=== PATIENT | female | born 1950 | race Caucasian/White ===

== ENCOUNTER 2022-12-29 13:53 | Emergency (ER) | payer MEDICARE, OTHER ==
[~2022-12-29] VITALS: Ht 180.3 cm; Wt 126.1 kg
[~2022-12-29 13:53] MED LIST: CHOL500045 PO; FLEC150T2 PO; LANS30TA10 PO; LEVO75TA10 PO; MULT-503 PO; SENN-178 PO; WARF-57 PO; WARF7.5T49 PO; [UNRECOGNIZED DRUG - CODE] PO
[2022-12-29] MEDS ORDERED: ADENOSINE 6MG VIAL IV ONE ×2 (14:30)
[2022-12-29 14:32] LABS: BASOPHILS % (AUTO) 0.3 % (0.0-5.0); EOSINOPHILS % (AUTO) 3.1 % (0.0-8.0); LYMPHOCYTES % (AUTO) 31.5 % (21.0-51.0); MEAN CORPUSCULAR HGB CONC 32.1 g/dL (32.0-36.0); MEAN CORPUSCULAR VOLUME 90.3 fL (79-99); NEUTROPHILS % (AUTO) 57.8 % (40.0-77.0); PLATELET COUNT (AUTO) 261 K/uL (130-400); RED BLOOD CELL COUNT(AUTO) 4.65 MIL/uL (4.00-5.50); RED CELL DISTRIBUTION WIDTH 13.7 % (11.0-15.5); WHITE BLOOD COUNT (AUTO) 11.7 K/uL (4.8-10.8)
[2022-12-29 14:44] LABS: CREATININE 0.9 mg/dL (0.5-1.5); POTASSIUM 4.7 mmol/L (3.5-5.1)
[2022-12-29 14:49] LABS: ALBUMIN 3.6 g/dL (3.5-5.0); TOTAL PROTEIN, SERUM 7.8 g/dL (6.0-8.3)
[2022-12-29 14:50] VITALS: BP 119/68
== END 2022-12-29 15:40 | disposition home or self-care (01) ==
LOC: EDH 13:53
DX: I47.1 Supraventricular tachycardia (principal); I48.91 Unspecified atrial fibrillation; Z88.5 Allergy status to narcotic agent; Z88.7 Allergy status to serum and vaccine; Z90.49 Acquired absence of other specified parts of digestive tract; Z98.890 Other specified postprocedural states
CPT/HCPCS: 36415; 71045; 80053; 84484; 85025; 93005

== ENCOUNTER 2023-09-16 13:26 | Emergency (ER) | payer MEDICARE ==
[~2023-09-16] VITALS: Ht 180.3 cm; Wt 129.3 kg
[2023-09-16] MEDS ORDERED: KETOROLAC 30MG VIAL (30MG/ML) IVP ONE (14:30)
[2023-09-16 15:24] LABS: BASOPHILS # (AUTO) 0.04 K/uL (0.00-0.20); BASOPHILS % (AUTO) 0.4 % (0.0-5.0); EOSINOPHILS # (AUTO) 0.22 K/uL (0.00-0.70); EOSINOPHILS % (AUTO) 2.3 % (0.0-8.0); HEMATOCRIT 33.6 % (36-48); IMMATURE GRANULOCYTE ABSOLUTE 0.05 K/uL (0-1); LYMPHOCYTES % (AUTO) 20.4 % (21.0-51.0); MEAN CORPUSCULAR HEMOGLOBIN 29.3 pg (27.0-33.0); MEAN CORPUSCULAR HGB CONC 32.7 g/dL (32.0-36.0); MEAN CORPUSCULAR VOLUME 89.4 fL (79-99); MONOCYTES # (AUTO) 0.8 K/uL (0.1-1.0); MONOCYTES % (AUTO) 8.4 % (3.0-13.0); NEUTROPHILS # (AUTO) 6.6 K/uL (1.8-7.7); PLATELET COUNT (AUTO) 235 K/uL (130-400); RED BLOOD CELL COUNT(AUTO) 3.76 MIL/uL (4.00-5.50); RED CELL DISTRIBUTION WIDTH 13.8 % (11.0-15.5); WHITE BLOOD COUNT (AUTO) 9.7 K/uL (4.8-10.8)
[2023-09-16 15:28] LABS: POTASSIUM 3.8 mmol/L (3.5-5.1)
[2023-09-16 15:33] LABS: ALBUMIN 3.1 g/dL (3.5-5.0); BILIRUBIN,TOTAL 0.4 mg/dL (0.2-1.0); TOTAL PROTEIN, SERUM 6.9 g/dL (6.0-8.3)
[2023-09-16 15:46] VITALS: BP 155/82; PULSE 78; RESP 18; O2SAT 98
[2023-09-16] MEDS ORDERED: KETO10TA2 PO (15:47)
== END 2023-09-16 16:02 | disposition home or self-care (01) ==
LOC: EDH 13:26
DX: S80.02XA Contusion of left knee, initial encounter (principal); S70.02XA Contusion of left hip, initial encounter; I48.91 Unspecified atrial fibrillation; Z79.890 Hormone replacement therapy; Z88.7 Allergy status to serum and vaccine; Z88.5 Allergy status to narcotic agent; Z90.49 Acquired absence of other specified parts of digestive tract; Z90.710 Acquired absence of both cervix and uterus; W01.0XXA Fall on same level from slipping, tripping and stumbling without subsequent striking against object, initial encounter; Y93.89 Activity, other specified; Y92.89 Other specified places as the place of occurrence of the external cause; Y99.8 Other external cause status
CPT/HCPCS: 99284; 96374; 80053; 85025; 87040 ×2; 83605; 36415; 73502; 73562; J1885

== ENCOUNTER → 2023-10-18 | Outpatient (CLI) | payer MEDICARE ==
[~2023-10-18] MED LIST changes: +KETO10TA2 PO
[2023-10-18 16:12] LABS: CREATININE 1.2 mg/dL (0.5-1.5)
[2023-10-18 16:16] LABS: INR 1.04 (0.85-1.15)
[2023-10-18 16:18] LABS: PARTIAL THROMBOPLASTIN TIME 37.2 SEC (26.3-35.5)
== END | disposition home or self-care (01) ==
LOC: LAB 15:11
PROVIDERS: ATTEND Physician Assistant
DX: I48.0 Paroxysmal atrial fibrillation (principal); Z79.01 Long term (current) use of anticoagulants
CPT/HCPCS: 36415; 82565; 85610; 85730